=== PATIENT | female | born 1950 | race Caucasian/White ===

== ENCOUNTER 2023-03-12 06:47 | Day surgery (SDC) | payer MEDICARE ==
[~2023-03-12] VITALS: Ht 170.2 cm; Wt 81.6 kg
[~2023-03-12 06:47] MED LIST: ADVANCED FIBER COMPL PO; B121000 MC1 PO; BIOTIN1 MG PO; CHROMIUM PICO PO; COQ10200 MG PO; CRESTOR10 MG PO; D31000 UNIT PO; FISH OIL1000 M1 PO; LEVOTHYROXIN100 MCG PO; MG GLUCONATE250 MG PO; MYRBETRIQ25 MG PO; OMEPRAZOLE DR40 MG PO; PROBIOTI2 PO; SYMBICORT1 AE1 IN; TUMERSAID PO; VIT E & A PO
[2023-03-12 08:07] VITALS: BP 152/78
== END 2023-03-12 08:20 | disposition home or self-care (01) ==
LOC: ENDO 06:47 → ORM 10:00 → ENDO 11:00 → ORM 11:00 → ENDO 14:55
PROVIDERS: ATTEND Internal Medicine Gastroenterology
PROC: 0DJD8ZZ Inspection of Lower Intestinal Tract, Via Natural or Artificial Opening Endoscopic (ICD-10-PCS; principal; 2023-03-12)
DX: K57.30 Diverticulosis of large intestine without perforation or abscess without bleeding (principal); K64.8 Other hemorrhoids; Z86.010 Personal history of colon polyps

== ENCOUNTER 2023-09-03 06:45 | Day surgery (SDC) | payer MEDICARE ==
[~2023-09-03] VITALS: Ht 170.2 cm; Wt 81.6 kg
[2023-09-03] MEDS ORDERED: FAMOTIDINE 10MG/ML 2ML SDV IV ONE (06:50)
[2023-09-03] MEDS ORDERED: LACTATED RINGER'S 1,000 ML IV ONE (06:50)
[2023-09-03 08:34] VITALS: BP 152/80
[2023-09-03] MEDS ORDERED: GLYCOPYRROLATE 0.2 MG/ML IV ONE (09:03)
[2023-09-03] MEDS ORDERED: LIDOCAINE HCL 2% 2ML SDV IV ONE (09:03)
[2023-09-03] MEDS ORDERED: PROPOFOL 200 MG/20 ML VIAL IV ONE (09:03)
== END 2023-09-03 08:55 | disposition home or self-care (01) ==
LOC: ENDO 06:45 → ORM 10:15
PROVIDERS: ATTEND Internal Medicine Gastroenterology
PROC: 0DB98ZX Excision of Duodenum, Via Natural or Artificial Opening Endoscopic, Diagnostic (ICD-10-PCS; principal; 2023-09-03)
PROC: 0DB78ZX Excision of Stomach, Pylorus, Via Natural or Artificial Opening Endoscopic, Diagnostic (ICD-10-PCS; 2023-09-03)
PROC: 0DB68ZX Excision of Stomach, Via Natural or Artificial Opening Endoscopic, Diagnostic (ICD-10-PCS; 2023-09-03)
PROC: 0DB58ZX Excision of Esophagus, Via Natural or Artificial Opening Endoscopic, Diagnostic (ICD-10-PCS; 2023-09-03)
DX: K29.80 Duodenitis without bleeding (principal); K31.89 Other diseases of stomach and duodenum; K31.7 Polyp of stomach and duodenum; K29.70 Gastritis, unspecified, without bleeding